=== PATIENT | female | born 1965 | race Caucasian/White ===

== ENCOUNTER 2022-01-18 07:54 | Outpatient (CLI) | payer OTHER, SELFPAY ==
--- NOTE | 2022-01-26 15:26 | WPDHOMESLEEP ---
Sleep Study - Home Unattended Date of Study: 01/18/22 Ordering Provider: Reece Jose DO Interpreting Provider: Leora Pickering MD Home Sleep Study Type: Apnea Link Air Height: 1.75 m Weight: 81.647 kg Body Mass Index: 26.6 Neck Circumference (inches): 15.5 [place]: 11 Reason for Sleep Study Hypersomnia Sleep History Emily Ellison is a 56 year old female with Complains of waking up during the night and having excessive daytime sleepiness. There is a family history of sleep apnea in her father. She occasionally awakens from sleep feeling short of breath. She occasionally awakens at night with heartburn, belching or coughing. She does not snore loudly enough that others complain about it. She frequently has trouble sleeping with a cold. She rarely wakes up gasping for breath at night. She occasionally has breathing problems at night observed by others. She frequently sweats excessively at night. She occasionally notices her heart pounding or beating irregularly at night. She occasionally falls asleep during the day. She frequently falls asleep involuntarily. She does not fall asleep while driving. She does not have loss of muscle tone with strong emotion. She does not have daytime difficulties due to excessive sleepiness. She does not feel paralyzed on waking or falling asleep. She occasionally has vivid dreamlike scenes upon awakening or falling asleep. She does not feel afraid to go to sleep. She occasionally has nightmares. She rarely remembers her dreams. She occasionally has racing thoughts. She rarely feels sad, depressed or anxious. She constantly has muscular tension. She rarely notices parts of her body jerking. She frequently kicks at night and has crawling and aching feelings in her legs. She frequently has leg pain during the night. She occasionally has morning jaw pain. She frequently is bothered by pain during the day. She occasionally is awakened by pain at night. She constantly wakes up feeling stiff in the morning. She frequently wakes up with sore achy muscles and pain in the neck and spine. She has fatigue. Normal bedtime is between 9:30 p.m. and 10:00 p.m., waking twice at night to urinate and get a drink. She wakes in the morning by 4:30 a.m.. On the weekends her schedule is similar, bedtime is 930-10 p.m. and she wakes at 5:00 a.m. she takes naps in the afternoon or evening. A short nap is not refreshing. Habits: Tobacco half pack per day. Caffeine 2 cups a day. No alcohol or recreational drugs. PMF Past Medical History Medical History Anxiety Asthma delivery delivered Cholecystectomy planned Hepatitis C Hyperlipemia Thyroid disease Surgical History Surgical History H/O: hysterectomy History of appendectomy History of bilateral tubal ligation Hx of tonsillectomy Family History Family History Father Hypertension Family history of diabetes mellitus in first degree relative Mother Family history of elevated blood lipids Social History Social History Smoking packs per day: 0.5 Smoking cigarettes per day: 10.0 Years smoked: 30 Smoking pack-years: 15.00 Smoking status: Current every day smoker Tobacco type: cigarettes Alcohol intake: never Medications Home Medications Medication Instructions Recorded Confirmed Type albuterol sulfate 90 mcg/actuation 90 mcg inhalation QID 09/17/19 10/21/21 History breath activated powder inhaler,sensor (Proair Digihaler) aspirin 81 mg tablet,delayed 81 mg PO DAILY 09/17/19 10/21/21 History release (Adult Aspirin Regimen) rosuvastatin 20 mg tablet 20 mg PO DAILY #30 tabs 09/19/19 10/21/21 Rx levothyroxine 150 mcg capsule 125 mcg PO DAILY 04/08/21 10/21/21 History Sleep
[2022-01-26 15:45] VITALS: BMI 26.6
== END 2022-01-20 12:24 | disposition home or self-care (01) ==
LOC: ANHCSM 07:55
PROVIDERS: PCP Internal Medicine; Visit Provider Internal Medicine Cardiovascular Disease
DX: G47.10 Hypersomnia, unspecified (principal); G25.81 Restless legs syndrome
CPT/HCPCS: 95806

== ENCOUNTER 2022-04-04 13:43 | Emergency (ER) | payer OTHER, SELFPAY ==
--- NOTE | 2022-04-04 13:48 | ECG_ITS ---
Measurements Intervals [place] Rate: 60 P: 65 DE: 144 QRS: 51 QRSD: 93 T: 34 QT: 441 QTc: 442 Interpretive Statements SINUS RHYTHM ATRIAL AND VENTRICULAR PREMATURE COMPLEXES BORDERLINE ST-T WAVE ABNORMALITY- ANTEROLAT/INF LEADS BORDERLINE ECG NO PREVIOUS ECG AVAILABLE FOR COMPARISON Electronically Signed On 04-04-2022 15:51:51 CDT by Reece Jose D.O.
[2022-04-04 14:00] VITALS: BP 108/60; PULSE 72; RESP 16; TEMP 35.8; O2SAT 99
--- NOTE | 2022-04-04 14:26 | ED.CHESTPAIN ---
HPI - Chest Pain General Chief Complaint: Chest Pain Stated Complaint: blood pressure and chest pain Time Seen by Provider: 04/04/22 14:09 Source: patient, family, RN notes reviewed and old records reviewed Mode of arrival: ambulatory Limitations: no limitations History of Present Illness HPI narrative: 56-year-old female accompanied by daughter presents to express care with complaints of episodes of chest pain starting this morning to the left side of the chest with some radiation down the shoulder to the left arm patient denies any acute dyspnea does admit to some nausea at times. Patient is supposed to be on cholesterol medicines and other meds and reports that she has not taken them regularly for the last year, she does smoke 1 pack cigarettes a day for many years relates history of father having aneurysm of his heart. MD complaint: chest pain Onset (ago): hour(s) (10 AM) Pain scale (0-10): 7 Treatment prior to arrival: none Related Data Allergies Allergy/AdvReac Type Severity Reaction Status Date / Time amoxicillin Allergy Unknown Unknown Verified 04/05/22 07:25 clavulanic acid Allergy Unknown HIVES Verified 04/05/22 07:25 codeine Allergy Unknown Unknown Verified 04/05/22 07:25 morphine Allergy Unknown Unknown Verified 04/05/22 07:25 Penicillins Allergy Unknown HIVES AND Verified 04/05/22 07:25 PERIPHERAL EDEMA tramadol Allergy Unknown Unknown Verified 04/05/22 07:25 PCN Allergy Severe ITCHING. Uncoded 04/05/22 07:25 BETALACTAMASEIN Allergy Unknown HIVES Uncoded 04/05/22 07:25 NKFA Allergy Unknown Unknown Uncoded 04/05/22 07:25 Review of Systems Review of Systems: CONSTITUTIONAL: Denies fever, chills, or sweats. EYES: Denies visual changes, redness, or discharge. ENT: Denies rhinorrhea, congestion, sore throat, or otalgia. CARDIOVASCULAR: Positive for intermittent chest pain today denies palpitations, or edema. RESPIRATORY: Denies cough or dyspnea. GASTROINTESTINAL: Denies abdominal pain,reports some nausea,no vomiting, or diarrhea. GENITOURINARY: Denies dysuria or hematuria. SKIN: Denies rash or itching. MUSCULOSKELETAL: Denies back pain, joint pain, or myalgia. NEUROLOGIC: Denies headache, numbness, or weakness. PSYCHIATRIC: Positive for anxiety or depression. All systems reviewed & are unremarkable except as noted in HPI and below PMFSH Past Medical History Medical History Anxiety Arthritis Asthma delivery delivered Cholecystectomy planned COPD (chronic obstructive pulmonary disease) Hepatitis C Hyperlipemia Low thyroid stimulating hormone (TSH) level Thyroid disease Surgical History Surgical History H/O: hysterectomy History of appendectomy History of bilateral tubal ligation Hx of tonsillectomy Previous back surgery Family History Family History Father Hypertension Family history of diabetes mellitus in first degree relative Mother Family history of elevated blood lipids Social History Social History Social History: The patient denies alcohol use, smokes a pack cigarettes 1p/day. occasional marijuana use Smoking packs per day: 0.5 Smoking cigarettes per day: 10.0 Years smoked: 30 Smoking pack-years: 15.00 Smoking status: Current every day smoker Tobacco type: cigarettes Alcohol intake: never Comments At time of signature, agree with nursing past medical, surgical, social and family history. There is no relevant family history pertinent to the presenting complaint Exam Narrative: GENERAL: Well-appearing, well-nourished, and in no acute distress. HEAD: Normocephalic, atraumatic. EYES: PERRLA and EOMI. ENT: Nares clear, no rhinorrhea or epistaxis. Mucous membranes moist. NECK: Supple. no lymphadenopathy CHEST: Clear to auscultation. No r
== END 2022-04-04 14:36 | disposition short-term general hospital (02) ==
PROVIDERS: Emergency Provider Registered Nurse; PCP Internal Medicine
DX: R07.9 Chest pain, unspecified (principal); F17.210 Nicotine dependence, cigarettes, uncomplicated; F12.90 Cannabis use, unspecified, uncomplicated; J45.909 Unspecified asthma, uncomplicated; E78.5 Hyperlipidemia, unspecified
CPT/HCPCS: 93005; 99213; G0463

== ENCOUNTER 2022-04-04 15:26 | Emergency (ER) | payer OTHER, SELFPAY ==
[2022-04-04] VITALS (11 sets, daily range): BP systolic 104–131; BP diastolic 53–78; PULSE 60–96; RESP 9–18; TEMP 36.2; O2SAT 79–100
--- NOTE | ~2022-04-04 | XR_ITS ---
EXAMINATION: XR chest 2V DATE: 04/04/2022 15:56 INDICATION: Chest pain TECHNIQUE: PA and lateral views of the chest are obtained. COMPARISON: None available FINDINGS: The lungs are free of acute opacities. No pleural effusion or pneumothorax. The cardiomedia stinal silhouette is normal. There is mild thoracic spondylosis. IMPRESSION: 1. No acute cardiopulmonary abnormality. Reviewed, dictated and finalized at location A.
--- NOTE | 2022-04-04 15:27 | ECG_ITS ---
Measurements Intervals [place] Rate: 64 P: 66 RI: 145 QRS: 51 QRSD: 97 T: 38 QT: 450 QTc: 465 Interpretive Statements SINUS RHYTHM WITH MARKED SINUS ARRHYTHMIA VENTRICULAR PREMATURE COMPLEX BORDERLINE ECG NO PREVIOUS ECG AVAILABLE FOR COMPARISON Electronically Signed On 04-04-2022 15:56:50 CDT by Reece Jose D.O.
[2022-04-04 15:48] LABS: Basophils Absolute Auto 0.1 K/mm3 (0.0-0.1); Basophils Percent Auto 0.7 % (0.2-1.2); Eosinophils Absolute Auto 0.2 K/mm3 (0-0.3); Eosinophils Percent Auto 2.7 % (0-4.4); Hematocrit 45.7 % (37.0-47.0); Hemoglobin 14.7 g/dL (12.0-15.0); Immature Granulocyte Absolute 0.04 K/mm3 (0.00-0.031); Immature Granulocyte Percent A 0.5 % (0-0.5); Lymphocytes Absolute Auto 3.04 K/mm3 (0.9-3.2); Lymphocytes Percent Auto 39.8 % (18.3-44.2); Mean Corpuscular HGB Conc 32.2 g/dl (32-36); Mean Corpuscular Hemoglobin 32.5 pg (26-34); Mean Corpuscular Volume 101.1 fl (80-100); Mean Platelet Volume 10.3 fl (7.4-10.4); Monocytes Absolute Auto 0.6 K/mm3 (0.1-0.6); Monocytes Percent Auto 7.2 % (2.6-8.5); Neutrophils Absolute Auto 3.8 K/mm3 (1.3-6.7); Neutrophils Percent Auto 49.1 % (45.5-73.1); Platelet Count Result 183 k/mm3 (150-375); Red Blood Count 4.52 M/mm3 (4.2-5.4); Red Cell Distribution Width 13.2 % (11.5-14.5); White Blood Count 7.6 K/mm3 (4.5-10.0)
[2022-04-04 16:00] LABS: Prothrombin Time 13.2 Seconds (11.1-14.7)
[2022-04-04 16:01] LABS: Alanine Aminotransferase 40 U/L (6-35); Albumin Level 4.5 g/dL (3.5-5.1); Alkaline Phosphatase 73 U/L (38-126); Anion Gap 10 mmol/L (8-16); Aspartate Amino Transferase 31 U/L (14-36); Bilirubin,Total 0.3 mg/dL (0.2-1.3); Blood Urea Nitrogen 12 mg/dL (7-17); Calcium 8.9 mg/dL (8.4-10.2); Carbon Dioxide 28 mmol/L (22-30); Chloride 101 mmol/L (98-107); Estimated CRCL calculation 65 ml/min; Estimated Glomerular Filt Rate > 60; Glucose 109 mg/dL (65-110); Lipase 167 U/L (23-300); Partial Thromboplastin Time 32.4 SECONDS (22.3-36.8); Potassium 3.9 mmol/L (3.4-5.0); Sodium 139 mmol/L (137-145)
[2022-04-04 16:11] LABS: Troponin I < 0.012 ng/mL (0.000-0.034)
--- NOTE | 2022-04-04 18:49 | ED.GENADULT ---
HPI - General Adult General Chief complaint: Chest Pain Stated complaint: chest pain Time Seen by Provider: 04/04/22 17:43 History of Present Illness HPI narrative: This is a 56-year-old female presenting ED with a chief complaint of chest pain. The patient said the chest pain started 8:00 a.m. while she was sitting drinking coffee. It is located on her left side and radiates to her left shoulder and collar bone. It is 7/10 in intensity, it comes and goes N/C explains as spasms. She is not currently experiencing chest pain. She has never felt pain like this before. There are no exacerbating or alleviating factors. Patient says is associated with vomiting. She denies vomiting, diaphoresis, or exertional component. She denies fever, chills, productive cough, history of blood clots or lower extremity edema. Patient states she has a history of emphysema but does not take any medication. 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 Related Data Allergies Allergy/AdvReac Type Severity Reaction Status Date / Time codeine AdvReac Nausea and Verified 04/04/22 19:26 Vomiting morphine AdvReac Vomiting Verified 04/04/22 19:25 Penicillins AdvReac Hives Verified 04/04/22 19:26 Review of Systems Review of Systems: CONSTITUTIONAL: Denies night sweats. EYES: No eye pain ENT: Denies rhinorrhea CARDIOVASCULAR: Denies palpitations RESPIRATORY: Denies hemoptysis GASTROINTESTINAL: Denies hematemesis GENITOURINARY: Denies hematuria. SKIN: Denies rash MUSCULOSKELETAL: Denies myalgia. NEUROLOGIC: Denies weakness. PSYCHIATRIC: Denies delusions [facility] Past Medical History Medical History (Updated 04/04/22 @ 20:02 by Connor Andino MD) Arthritis COPD (chronic obstructive pulmonary disease) Low thyroid stimulating hormone (TSH) level Surgical History Surgical History (Updated 04/04/22 @ 18:51 by Connor Andino MD) Previous back surgery Social History Social History (Updated 04/04/22 @ 18:52 by Connor Andino MD) Social History: The patient denies alcohol use, smokes a pack cigarettes 1p/day. occasional marijuana use Exam Narrative: APPEARANCE: No apparent distress. Head atraumatic. EYES: PERRLA/EOMI, NOSE: Normal no drainage NECK: Supple, Trachea midline RESPIRATORY: CTAB, No increased work of breathing. no wheezing, rhonchi or rales CARDIOVASCULAR: S1S2 appreciated no peripheral edema, ABDOMINAL: Soft, nontender, nondistended, MUSCULOSKELETAl: No obvious deformities, tenderness to palpation over the left pectoral muscles NEURO: Alert. Moving 4/4 extremities SKIN:: Warm, dry. Normal color PSYCHIATRIC: Normal affect Course Vital Signs Vital signs: Vital Signs Temperature 97.2 F L 04/04/22 15:28 Pulse Rate 96 04/04/22 15:28 Respiratory Rate 18 04/04/22 15:28 Pulse Oximetry 99 04/04/22 15:28 Temperature 97.2 F L 04/04/22 15:28 Pulse Rate 60 04/04/22 19:15 Respiratory Rate 12 04/04/22 19:15 Blood Pressure 104/55 L 04/04/22 19:15 Pulse Oximetry 97 04/04/22 19:15 Medical Decision Making MDM Narrative Medical decision making narrative: this is a 56-year-old female presenting to ED with chest pain. Differential includes ACS, pneumonia, COPD exacerbation musculoskeletal pain among others. Lab work, EKG and chest x-ray have been obtained. Patient was given Motrin and Tylenol as her pain is reproducible on palpitation. lab work was within normal limits. There have been 2- troponins. EKG interpretation: Rhythm [sinus], Rate 64, [place] -[normal], [place] -[normal], QRS [narrow], QTC [normal], T waves -[negative for concerning inversions], ST Segments - [Negative for concerning elevations] Final interpretations: Sinus arrhythmia with occasional PVCs My interpretation of the x-ray is no acute cardiopulmonary process. Patient's EKGs and labs are reviewed without significant high risk changes. Cardiac risk factors reviewed. Heart score
--- NOTE | 2022-04-04 19:14 | PC.NURSE ---
pt refusing IV she states it is not necessary.
[2022-04-04] MEDS: methocarbamoL 750 MG TABLET PO (19:20)
[2022-04-04 19:26] LABS: Troponin I < 0.012 ng/mL (0.000-0.034)
== END 2022-04-04 20:42 | disposition home or self-care (01) ==
PROVIDERS: Emergency Medicine; Emergency Provider Emergency Medicine; PCP Internal Medicine
DX: R07.9 Chest pain, unspecified (principal); J43.9 Emphysema, unspecified; M19.90 Unspecified osteoarthritis, unspecified site; F17.210 Nicotine dependence, cigarettes, uncomplicated; I49.3 Ventricular premature depolarization
CPT/HCPCS: 36415; 71046; 80053; 83690; 84484; 85025; 85610; 85730; 93005; 99213; 99284; A9270; G0463

== ENCOUNTER 2022-12-12 08:09 | Outpatient (CLI) | payer OTHER, SELFPAY ==
--- NOTE | ~2022-12-12 | NM_ITS ---
EXAMINATION: NM jeffrey stress w perfusion DATE: 12/12/2022 09:52 INDICATION: Other forms of dyspnea. TECHNIQUE: Rest images were obtained following intravenous administration of 10.5 mCi Tc99m tetrofosm in (Myoview). The patient was infused intravenously with Lexiscan (regadenoson). Then, 34.6 mCi Tc99m tetrofosmin (Myoview) was administered intravenously, and stress images were obtained. Data was dinora nstructed into short axis and horizontal and vertical long axis SPECT images. Gated SPECT images were also obtained. COMPARISON: CT abdomen and pelvis 01/29/2007 FINDINGS: There is increased activity below the diaphragm. There is a moderate-sized, mild, reversibl e perfusion defect involving apical to mid inferior wall and mid inferoseptal segment of left ventric le, consistent with ischemia. There is no segmental wall motion abnormality. Left ventricular eject ion fraction measures 61%. IMPRESSION: 1. Moderate-sized area of mild ischemia involving apical to mid inferior wall and mid inferoseptal se gment of left ventricle. Note that increased activity below the diaphragm decreases sensitivity and s pecificity in the inferior wall. 2. Normal left ventricular ejection fraction measuring 61%. Reviewed, dictated and finalized at location A. IMPRESSION: 1. Moderate-sized area of mild ischemia involving apical to mid inferior wall a nd mid inferoseptal segment of left ventricle. Note that increased activity bel ow the diaphragm decreases sensitivity and specificity in the inferior wall. 2. Normal left ventricular ejection fraction measuring 61%.
--- NOTE | 2022-12-12 08:12 | EST_ITS ---
Patient Info Name: Emily Ellison Age: 57 years : 1965 Gender: Female Ht: 70 in Wt: 180 lbs BSA: 2.02 m2 HR: 67 bpm BP: 117 / 68 mmHg Heart Rhythm: Sinus Rhythm Exam Date: 12/12/2022 8:58 AM Exam Location: [facility] Stress Patient Status: Outpatient Admit Date: 12/12/2022 Staff Ordering Physician: Reece Jose DO Attending Provider: Reece Jose DO Exercise Technologist: Autumn Villavicencio CT Exercise Physician: Reece Jose DO Exam Type: CA stress jeffrey w NM Study Info Indications R06.09 - Other forms of dyspnea A regadenoson stress test was performed. Summary 1. 1. Negative lexiscan stress test for ischemic ST changes by ECG criteria. 2. 2. Stable hemodynamics throughout the test. 3. 3. Nuclear scan to follow and will be reported separately. Please correlate with it. 4. 4. Patient informed of the above results. Protocol: Lexiscan Stress ECG Details Stage: REST Duration (min): 2 min : 29 sec HR (bpm): 64 SBP (mmHg): 117 DBP (mmHg): 68 Stage: REST Duration (min): 9 min : 10 sec HR (bpm): 72 SBP (mmHg): 117 DBP (mmHg): 68 Stage: STAGE 1 Duration (min): 0 min : 59 sec HR (bpm): 91 SBP (mmHg): 131 DBP (mmHg): 91 Stage: RECOVERY Duration (min): 1 min : 0 sec HR (bpm): 90 SBP (mmHg): 131 DBP (mmHg): 91 Stage: RECOVERY Duration (min): 2 min : 0 sec HR (bpm): 86 SBP (mmHg): 131 DBP (mmHg): 91 Stage: RECOVERY Duration (min): 3 min : 0 sec HR (bpm): 83 SBP (mmHg): 122 DBP (mmHg): 84 Rest HR: 72 bpm Peak HR: 94 bpm Rest Sys BP: 117 mmHg Peak Sys BP: 131 mmHg Max Pred HR: 162 bpm % Max Pred HR: 58 % Target HR: 138 bpm Max RPP: 12,314 bpm*mmHg Termination Reason: Completed protocol Cardiac Symptoms: Shortness of breath Total Time: 1 min : 0 sec Rest Gates BP: 68 mmHg Peak Gates BP: 91 mmHg Total Dose: 0.4 mg Resting ECG Sinus rhythm, frequent PAC's. Stress ECG No ST changes. Arrhythmias None. Report Signatures
== END 2022-12-12 08:10 | disposition home or self-care (01) ==
PROVIDERS: PCP Internal Medicine; Visit Provider Internal Medicine Cardiovascular Disease
DX: R06.09 Other forms of dyspnea (principal); E78.5 Hyperlipidemia, unspecified
CPT/HCPCS: 78452; 93017; A9502; J2785

== ENCOUNTER 2022-12-19 11:54 | Observation (INO) | payer OTHER, SELFPAY ==
[2022-12-19] VITALS (16 sets, daily range): BP systolic 97–144; BP diastolic 62–86; PULSE 51–75; RESP 14–22; TEMP 36–36.5; O2SAT 97–100; BMI 25.4
--- NOTE | ~2022-12-19 | XR_ITS ---
EXAMINATION: XR chest 2V DATE: 12/19/2022 12:27 INDICATION: Chest pain TECHNIQUE: Frontal and lateral views of the chest are obtained COMPARISON: 04/04/2022 FINDINGS: The lungs are free of acute opacities. No pleural effusion or pneumothorax. The cardiomedia stinal silhouette is normal. There is mild thoracic spondylosis. Surgical clips in the right upper qu adrant are likely from prior cholecystectomy. IMPRESSION: 1. No acute cardiopulmonary abnormality. Reviewed, dictated and finalized at location A.
--- NOTE | 2022-12-19 11:57 | ECG_ITS ---
Measurements Intervals [place] Rate: 65 P: 64 NE: 146 QRS: 54 QRSD: 90 T: 26 QT: 417 QTc: 435 Interpretive Statements SINUS RHYTHM WITH FREQUENT SUPRAVENTRICULAR PREMATURE COMPLEXES BORDERLINE ECG COMPARED TO ECG 04/04/2022 14:07:22 NO SIGNIFICANT CHANGES Electronically Signed On 12-19-2022 17:11:23 CDT by Nelson Tan M.D.
[2022-12-19] MEDS: ASPIRIN 81 MG CHEWABLE TABLET 324 MG PO (12:13)
[2022-12-19 12:19] LABS: Basophils Absolute Auto 0.1 K/mm3 (0.0-0.1); Eosinophils Absolute Auto 0.2 K/mm3 (0-0.3); Eosinophils Percent Auto 2.1 % (0-4.4); Hematocrit 46.7 % (37.0-47.0); Hemoglobin 15.5 g/dL (12.0-15.0); Immature Granulocyte Absolute 0.04 K/mm3 (0.00-0.031); Immature Granulocyte Percent A 0.5 % (0-0.5); Lymphocytes Absolute Auto 3.32 K/mm3 (0.9-3.2); Lymphocytes Percent Auto 40.5 % (18.3-44.2); Mean Corpuscular HGB Conc 33.2 g/dl (32-36); Mean Corpuscular Volume 99.4 fl (80-100); Mean Platelet Volume 10.5 fl (7.4-10.4); Monocytes Absolute Auto 0.7 K/mm3 (0.1-0.6); Monocytes Percent Auto 8.3 % (2.6-8.5); Neutrophils Absolute Auto 3.9 K/mm3 (1.3-6.7); Neutrophils Percent Auto 47.6 % (45.5-73.1); Platelet Count Result 198 k/mm3 (150-375); Red Cell Distribution Width 12.5 % (11.5-14.5); White Blood Count 8.2 K/mm3 (4.5-10.0)
[2022-12-19 12:23] LABS: Alanine Aminotransferase 34 U/L (6-35); Albumin Level 4.3 g/dL (3.5-5.1); Alkaline Phosphatase 84 U/L (38-126); Anion Gap 4 mmol/L (8-16); Aspartate Amino Transferase 28 U/L (14-36); Bilirubin,Total 0.4 mg/dL (0.2-1.3); Blood Urea Nitrogen 10 mg/dL (7-17); Calcium 8.6 mg/dL (8.4-10.2); Carbon Dioxide 30 mmol/L (22-30); Chloride 104 mmol/L (98-107); Estimated CRCL calculation 72 ml/min; Estimated Glomerular Filt Rate > 60; Glucose 95 mg/dL (65-110); Lipase 124 U/L (23-300); Potassium 4.4 mmol/L (3.4-5.0); Sodium 138 mmol/L (137-145)
[2022-12-19 12:27] LABS: Prothrombin Time 13.1 Seconds (11.1-14.7)
[2022-12-19 12:28] LABS: Partial Thromboplastin Time 31.7 SECONDS (22.3-36.8)
[2022-12-19 12:34] LABS: Troponin I < 0.012 ng/mL (0.000-0.034)
--- NOTE | 2022-12-19 13:25 | ED.CHESTPAIN ---
HPI - Chest Pain General Chief Complaint: Chest Pain Stated Complaint: cp radiation down arm and into back Time Seen by Provider: 12/19/22 12:35 Source: patient Mode of arrival: ambulatory Limitations: no limitations History of Present Illness HPI narrative: 57-year-old with a history of hypertension, COPD, anxiety here with complaints of midsternal chest pain radiating into her left arm for past 1 week. Patient states that she had outpatient stress test done at on 12/12/2022 which was abnormal. Since then she has been having chest pain with exertion. Patient denied any unusual shortness of breath, nausea or diaphoresis with the pain. She states that she called her carton making machine operator this morning was advised to come to the ER for possible stent. She presently has no pain Related Data Home Medications Medication Instructions Recorded Confirmed aspirin 81 mg tablet,delayed 81 mg PO DAILY 12/14/22 12/14/22 release Allergies Allergy/AdvReac Type Severity Reaction Status Date / Time amoxicillin Allergy Unknown Unknown Verified 12/14/22 14:03 clavulanic acid Allergy Unknown HIVES Verified 12/14/22 14:03 codeine Allergy Unknown Unknown Verified 12/14/22 14:03 morphine Allergy Unknown Unknown Verified 12/14/22 14:03 Penicillins Allergy Unknown HIVES AND Verified 12/14/22 14:03 PERIPHERAL EDEMA tramadol Allergy Unknown Unknown Verified 12/14/22 14:03 PCN Allergy Severe ITCHING. Uncoded 12/14/22 14:03 BETALACTAMASEIN Allergy Unknown HIVES Uncoded 12/14/22 14:03 NKFA Allergy Unknown Unknown Uncoded 12/14/22 14:03 Review of Systems Review of Systems: All systems reviewed & are unremarkable except as noted in HPI and below Constitutional: Constitutional: Reports no additional constitutional complaints Eyes: Eyes: Reports no additional eye complaints ENT: Reports system reviewed and no additional complaints, except as documented Cardiovascular: Cardiovascular: Reports as per HPI Respiratory: Respiratory: Reports no additional respiratory complaints Gastrointestinal: Gastrointestinal: Reports no additional gastrointestinal complaints Musculoskeletal: Musculoskeletal: Reports no additional musculoskeletal complaints Neurologic: Reports system reviewed and no additional complaints, except as documented [facility] Past Medical History Medical History Anxiety Arthritis Asthma delivery delivered Cholecystectomy planned COPD (chronic obstructive pulmonary disease) Hepatitis C Hyperlipemia Low thyroid stimulating hormone (TSH) level Thyroid disease Surgical History Surgical History H/O: hysterectomy History of appendectomy History of bilateral tubal ligation Hx of tonsillectomy Previous back surgery Family History Family History Father Hypertension Family history of diabetes mellitus in first degree relative Mother Family history of elevated blood lipids Social History Social History Social History: The patient denies alcohol use, smokes a pack cigarettes 1p/day. occasional marijuana use Smoking packs per day: 0.5 Smoking cigarettes per day: 10.0 Years smoked: 30 Smoking pack-years: 15.00 Smoking status: Current every day smoker Tobacco type: cigarettes Alcohol intake: never Exam Narrative: GENERAL: Well-appearing, well-nourished, and in no acute distress. HEAD: Normocephalic, atraumatic. EYES: PERRLA and EOMI. NECK: Supple. CHEST: Clear to auscultation. No respiratory distress. HEART: Regular rate and rhythm. No murmur heard. Normal peripheral pulses. ABDOMEN: Soft, nontender, nondistended, normal active bowel sounds. EXTREMITIES: Normal range of motion. No edema. SKIN: Warm, dry, no rash. NEURO: No focal deficits. Alert and oriented x3. PSYCH: Normal mo
[2022-12-19] MEDS: IPRATROPIUM BR 0.02% INH SOLN 0.5 MG/2.5 ML VIAL INHALATION ×2 (14:13→21:19)
[2022-12-19] MEDS: ALBUTEROL SULFATE NEB 2.5 MG/3 ML INH INHALATION (14:13)
[2022-12-19] MEDS: ONDANSETRON INJ 4 MG/2 ML VIAL IV PUSH (14:43)
[2022-12-19 16:23] LABS: Troponin I < 0.012 ng/mL (0.000-0.034)
--- NOTE | 2022-12-19 16:27 | PM.IMHP ---
H&P: HPI History of Present Illness Date/Time: 12/19/22 17:00 Chief Complaint: Left chest pain. Narrative: This is a 57-year-old female smoker with hyperlipidemia who presented to the emergency department from home for evaluation of left sided chest pain. The patient provides the following history. She had a stress test on 12/12/2022 for evaluation of shortness of breath which revealed a moderate-size area of mild ischemia involving the apical to mid inferior wall and mid inferoseptal segment of the left ventricle with a normal LVEF of 61%. She was referred to [facility] cardiology for consideration of cardiac catheterization but she has not yet had that done. She has since developed mid chest discomfort which initially occurred with exertion however is now occurring with rest. She has difficulties describing the pain but she does indicate that it seems to radiate through to the back into the left arm. Occasionally she has associated sweats, nausea, and mild shortness of breath. She denies syncope, near syncope, fever, chills, sweats, cough, orthopnea, paroxysmal nocturnal dyspnea, lower extremity edema, calf pain, and vomiting. Her vital signs were stable on arrival to the emergency department. CMP and CBC were really unremarkable though her hemoglobin was a bit elevated 15.5. Her initial troponin was negative. Chest x-ray showed sinus rhythm with ectopy and no acute ST segment elevations or depressions. Given her recent stress test results she is being admitted for close monitoring and Cardiology consultation. At the time my evaluation she is not having discomfort and she is resting comfortably. Review of Systems Review of Systems: Twelve systems were reviewed and are negative except for as per HPI. [facility] Past Medical History Medical History Anxiety Arthritis Asthma Chronic obstructive pulmonary disease Hepatitis C Hyperlipemia Hypothyroidism No longer on medication. Surgical History Surgical History History of appendectomy History of back surgery History of bilateral salpingo-oophorectomy History of bilateral tubal ligation History of hysterectomy History of laparoscopic cholecystectomy History of tonsillectomy Family History Family History Father Hypertension Family history of diabetes mellitus in first degree relative Mother Family history of elevated blood lipids Social History Social History Social History: Surrogate medical decision maker: Vitor Ellison, spouse. Code status: Full code. Smoking packs per day: 1 Smoking cigarettes per day: 20.0 Years smoked: 40 Smoking pack-years: 40.00 Smoking status: Current every day smoker Tobacco type: cigarettes Alcohol intake: never Substance use: current Substance use type: marijuana Lack of Transportation: No Lack of Food: Never True Current Housing: I Have Housing Concerned About Future Housing: No Difficulty Paying Gas/Electric Bills: No Difficulty Paying for Meds: No Currently Unemployed: No Education: High School Diploma/GED Difficulty w/ Childcare or Family Care: No Spiritual care concerns: No Meds Home Medications and Allergies Home Medications Medication Instructions Recorded Confirmed Type rosuvastatin 20 mg tablet 20 mg PO DAILY #90 tabs 04/22/22 12/19/22 Rx aspirin 81 mg tablet,delayed 81 mg PO DAILY 12/14/22 12/19/22 History release albuterol sulfate 90 mcg/actuation 2 inh inhalation Q6H 12/19/22 12/19/22 History aerosol inhaler Allergies Allergy/AdvReac Type Severity Reaction Status Date / Time amoxicillin Allergy Unknown Unknown Verified 12/14/22 14:03 clavulanic acid Allergy Unknown HIVES Verified 12/14/22 14:03 codeine Allergy Unknown Unknown Verified 0
[2022-12-19 20:18] LABS: Troponin I < 0.012 ng/mL (0.000-0.034)
[2022-12-19] MEDS: ALBUTEROL SULFATE (*SP) AEROSOL 1 PUFF 2 PUFF INHALATION (21:29)
[2022-12-20] VITALS (25 sets, daily range): BP systolic 93–119; BP diastolic 43–82; PULSE 48–95; RESP 13–21; TEMP 36.1–36.9; O2SAT 95–100
[2022-12-20] MEDS: IPRATROPIUM BR 0.02% INH SOLN 0.5 MG/2.5 ML VIAL INHALATION (02:57)
[2022-12-20] MEDS: ASPIRIN 81 MG ENTERIC TABLET PO (08:48)
[2022-12-20] MEDS: ALBUTEROL SULFATE (*SP) AEROSOL 1 PUFF 2 PUFF INHALATION ×3 (09:02→20:10)
--- NOTE | 2022-12-20 10:44 | PM.IMPN ---
Progress Note: A&P Assessment and Plan (1) Chest pain: Code(s): R07.9 - Chest pain, unspecified Status: Acute Assessment and Plan: Currently asymptomatic. Continue aspirin, morphine. Cardiology consulted (2) Chronic obstructive pulmonary disease: Code(s): J44.9 - Chronic obstructive pulmonary disease, unspecified Status: Acute Assessment and Plan: Stable. Continue ipratropium (3) Hyperlipemia: Code(s): E78.5 - Hyperlipidemia, unspecified Status: Acute Assessment and Plan: Continue statin (4) Tobacco abuse: Code(s): Z72.0 - Tobacco use Status: Acute Subjective Date/time seen: 12/20/22 10:44 Interval history: No chest pain at this time Review of Systems Review of Systems: Twelve systems were reviewed and are negative except for as per HPI. Exam Narrative: General: Well-developed, nontoxic-appearing female supine in bed. Weight: 80.6 kg. BMI: 25.5. HEENT: Normocephalic, atraumatic. PERRL, EOMI. Sclera anicteric. Oral mucosa moist. Neck: Supple. Respiratory: Lungs are clear to auscultation bilaterally. Cardiovascular: Regular rate and rhythm with S1-S2. Chest: No tenderness to palpation over the chest wall. Gastrointestinal: Abdomen is soft, nontender, and nondistended with positive bowel sounds. Skin: Warm and dry. No rash or lesions on limited exam. Extremities: No cyanosis, clubbing, or edema. Radial and pedal pulses intact. Wearing a brace on her right hand/wrist for her carpal tunnel symptoms. Neurological: Alert. Cranial nerves 2-12 are grossly intact. No gross focal deficits to casual conversation. Psychiatric: Pleasant and cooperative with appropriate mood and affect. Objective Data Vital Signs Vital Signs: Vital Signs - 24 hr 12/19/22 12:10 12/19/22 12:36 12/19/22 13:30 Temperature 97.5 F L Pulse Rate 67 68 65 Respiratory Rate 15 18 Blood Pressure 100/62 144/86 H Pulse Oximetry 100 98 Oxygen Delivery Room Air 12/19/22 13:52 12/19/22 14:14 12/19/22 14:15 Temperature Pulse Rate 69 72 Respiratory Rate 15 17 Blood Pressure 144/86 H Pulse Oximetry 100 99 Oxygen Delivery Room Air 12/19/22 14:24 12/19/22 15:04 12/19/22 15:18 Temperature 97.7 F Pulse Rate 60 64 70 Respiratory Rate 14 19 22 H Blood Pressure 100/66 126/63 Pulse Oximetry 98 97 Oxygen Delivery 12/19/22 17:00 12/19/22 16:00 12/19/22 18:00 Temperature 96.8 F L Pulse Rate 52 L 74 55 L Respiratory Rate 16 Blood Pressure 97/65 L Pulse Oximetry 100 Oxygen Delivery 12/19/22 16:00 12/19/22 20:00 12/19/22 20:00 Temperature 97.1 F L Pulse Rate 51 L 75 Respiratory Rate 16 Blood Pressure 99/64 L Pulse Oximetry 99 Oxygen Delivery Room Air 12/19/22 20:00 12/19/22 21:25 12/19/22 21:25 Temperature Pulse Rate 75 68 75 Respiratory Rate 16 18 Blood Pressure Pulse Oximetry 99 Oxygen Delivery Room Air 12/20/22 00:00 12/20/22 00:00 12/20/22 00:00 Temperature 97.6 F Pulse Rate 95 61 68 Respiratory Rate 20 20 Blood Pressure 93/61 L Pulse Oximetry 95 95 Oxygen Delivery Room Air 12/19/22 21:35 12/20/22 01:56 12/20/22 02:00 Temperature Pulse Rate 72 64 Respiratory Rate 18 Blood Pressure Pulse Oximetry 99 Oxygen Delivery Room Air 12/20/22 03:00 12/20/22 03:06 12/20/22 04:00 Temperature 97.8 F Pulse Rate 85 83 63 Respiratory Rate 16 16 18 Blood Pressure 107/55 L Pulse Oximetry 98 Oxygen Delivery 12/20/22 04:00 12/20/22 04:00 12/20/22 06:00 Temperature Pulse Rate 60 60 54 L Respiratory Rate 18 Blood Pressure Pulse Oximetry 98 Oxygen Delivery Room Air 12/20/22 08:00 12/20/22 09:03 12/20/22 08:00 Temperature 97.1 F L Pulse Rate 62 Respiratory Rate 14 Blood Pressure 111/43 L Pulse Oximetry 100 98 Oxygen Delivery Room Air Room Air 12/20/22 08:00 12/20/22 10:00 12/19/22 15:19 Temper
--- NOTE | 2022-12-20 11:58 | PM.CNCAR ---
Assessment and Plan Assessment and plan (1) Chest pain: Code(s): R07.9 - Chest pain, unspecified Status: Acute (2) Abnormal stress test: Code(s): R94.39 - Abnormal result of other cardiovascular function study Status: Acute (3) Tobacco abuse: Code(s): Z72.0 - Tobacco use Status: Acute Plan Given her chest pain in the setting of abnormal stress test, recommended cardiac cath, which was to be done as outpatient, however, as patient is now admitted, recommended inpatient cath as patient has been having progressive chest pain. Discussed indications of procedure, procedure details, risks vs benefits, alternative management options. Patient agrees to proceed. Will plan for cardiac cath this afternoon. Continue ASA and statin. Will load with Plavix 600mg x 1. Further recommendations/plan pending results of cardiac cath. History of Present Illness History of Present Illness Consult date/time: 12/20/22 11:58 Requesting physician: Nickolas Gautam MD Consult reason: chest pain Reason For Visit: Unstable Angina Narrative: We are consulted for chest pain. This is a 57-year-old female with hyperlipidemia, tobacco dependence, COPD who is a patient of Dr. Jose's. Patient saw Dr. Jose on 12/14 for chest pain, dyspnea on exertion. Lexiscan 12/12/2022 showed moderate-sized area of mild ischemia involving apical to mid inferior wall and mid inferoseptal segment of left ventricle. Normal LVEF 61% and no segmental wall motion abnormality seen. Dr. Jose recommended outpatient cardiac cath, but patient states her insurance has not approved it. Patient states her chest pain has been progressive, therefore, presented to the ER for further evaluation. EKGs show sinus rhythm without ischemic changes. Troponins are negative. Of note, prior to my initial evaluation of the patient, she stated to the nurses she wanted to leave [facility] as she is frustrated with the system. Review of Systems Review of Systems: All systems reviewed & are unremarkable except as noted in HPI and below (HPI) [facility] Past Medical History Medical History Anxiety Arthritis Asthma Chronic obstructive pulmonary disease Hepatitis C Hyperlipemia Hypothyroidism No longer on medication. Surgical History Surgical History History of appendectomy History of back surgery History of bilateral salpingo-oophorectomy History of bilateral tubal ligation History of hysterectomy History of laparoscopic cholecystectomy History of tonsillectomy Family History Family History Father Hypertension Family history of diabetes mellitus in first degree relative Mother Family history of elevated blood lipids Social History Social History Social History: Surrogate medical decision maker: Vitor Ellison, spouse. Code status: Full code. Smoking packs per day: 1 Smoking cigarettes per day: 20.0 Years smoked: 40 Smoking pack-years: 40.00 Smoking status: Current every day smoker Tobacco type: cigarettes Alcohol intake: never Substance use: current Substance use type: marijuana Lack of Transportation: No Lack of Food: Never True Current Housing: I Have Housing Concerned About Future Housing: No Difficulty Paying Gas/Electric Bills: No Difficulty Paying for Meds: No Currently Unemployed: No Education: High School Diploma/GED Difficulty w/ Childcare or Family Care: No Spiritual care concerns: No Meds Home Medications and Allergies Home Medications Medication Instructions Recorded Confirmed Type rosuvastatin 20 mg tablet 20 mg PO DAILY #90 tabs 04/22/22 12/19/22 Rx aspirin 81 mg tablet,delayed 81 mg PO DAILY 12/14/22 12/19/22 History release albuterol sulfate 90 mcg/actuation 2 inh inhalation Q6H
--- NOTE | 2022-12-20 12:13 | WPDMODSED ---
Moderate Sedation Note-Pt Data Patient Data Diagnosis: Chest pain, abnormal stress test Present Complaint: Chest pain, abnormal stress test Procedure to be performed/Plan: Coronary angiography, LHC, +/- PCI Allergies Allergy/AdvReac Type Severity Reaction Status Date / Time amoxicillin Allergy Unknown Unknown Verified 12/14/22 14:03 clavulanic acid Allergy Unknown HIVES Verified 12/14/22 14:03 codeine Allergy Unknown Unknown Verified 12/14/22 14:03 morphine Allergy Unknown Unknown Verified 12/14/22 14:03 Penicillins Allergy Unknown HIVES AND Verified 12/20/22 08:55 PERIPHERAL EDEMA, ITCHING tramadol Allergy Unknown Unknown Verified 12/14/22 14:03 acetaminophen [From Percocet] AdvReac Intermediate Hives Verified 12/19/22 15:17 oxycodone [From Percocet] AdvReac Intermediate Hives Verified 12/19/22 15:17 BETALACTAMASEIN Allergy Unknown HIVES Uncoded 12/14/22 14:03 NKFA Allergy Unknown Unknown Uncoded 12/14/22 14:03 Home Medications Medication Instructions Recorded Confirmed Type rosuvastatin 20 mg tablet 20 mg PO DAILY #90 tabs 04/22/22 12/19/22 Rx aspirin 81 mg tablet,delayed 81 mg PO DAILY 12/14/22 12/19/22 History release albuterol sulfate 90 mcg/actuation 2 inh inhalation Q6H 12/19/22 12/19/22 History aerosol inhaler Current Medications: Active Medications Albuterol (Albuterol Sulfate (*Sp) Aerosol 1 Puff) 2 puff INHALATION Q6HRT [facility] Last Admin: 12/20/22 09:02 Dose: 2 puff Aspirin (Aspirin 81 Mg Enteric Tablet) 81 mg PO DAILY [facility] Last Admin: 12/20/22 08:48 Dose: 81 mg Enoxaparin Sodium (Enoxaparin 40 Mg/0.4 Ml Syringe) 40 mg SUB-Q DAILY [facility] Ipratropium [place] (Ipratropium Br 0.02% Inh Soln 0.5 Mg/2.5 Ml Vial) 0.5 mg INHALATION Q6HRT [facility] Last Admin: 12/20/22 09:02 Dose: Not Given Morphine Sulfate (Morphine Sulfate (*Crx) 4 Mg/Ml Inj) 2 mg IV PUSH Q2H PRN PRN Reason: Pain Rated 7-10 Nitroglycerin (Nitroglycerin Sl 0.4 Mg Tablet) 0.4 mg SUBLINGUAL Q5MIN PRN PRN Reason: Chest Pain Ondansetron HCl (Ondansetron Inj 4 Mg/2 Ml Vial) 4 mg IV PUSH Q4H PRN PRN Reason: Nausea Last Admin: 12/19/22 14:43 Dose: 4 mg Rosuvastatin Calcium (Rosuvastatin 10 Mg Tablet) 20 mg PO HS [facility] Sedation/Anesthesia: No previous sedation/anesthesia problems (including family history). [facility] Past Medical History Medical History Anxiety Arthritis Asthma Chronic obstructive pulmonary disease Hepatitis C Hyperlipemia Hypothyroidism No longer on medication. Surgical History Surgical History History of appendectomy History of back surgery History of bilateral salpingo-oophorectomy History of bilateral tubal ligation History of hysterectomy History of laparoscopic cholecystectomy History of tonsillectomy Family History Family History Father Hypertension Family history of diabetes mellitus in first degree relative Mother Family history of elevated blood lipids Social History Social History Social History: Surrogate medical decision maker: Vitor Ellison, spouse. Code status: Full code. Smoking packs per day: 1 Smoking cigarettes per day: 20.0 Years smoked: 40 Smoking pack-years: 40.00 Smoking status: Current every day smoker Tobacco type: cigarettes Alcohol intake: never Substance use: current Substance use type: marijuana Lack of Transportation: No Lack of Food: Never True Current Housing: I Have Housing Concerned About Future Housing: No Difficulty Paying Gas/Electric Bills: No Difficulty Paying for Meds: No Currently Unemployed: No Education: High School Diploma/GED Difficulty w/ Childcare or Family Care: No Spiritual care concerns: No Mod Sed Physical Exam Physical Exam Pre Procedural Exam: Normal: Appearance,
[2022-12-20] MEDS: CLOPIDOGREL BISULFATE 300 MG TABLET 600 MG PO (12:44)
--- NOTE | 2022-12-20 14:25 | PC.NURSE ---
Pt to [facility] laborer via bed
[2022-12-20 14:41] LABS: Basophils Absolute Auto 0.1 K/mm3 (0.0-0.1); Basophils Percent Auto 0.9 % (0.2-1.2); Eosinophils Absolute Auto 0.1 K/mm3 (0-0.3); Eosinophils Percent Auto 1.7 % (0-4.4); Hematocrit 48.8 % (37.0-47.0); Immature Granulocyte Absolute 0.02 K/mm3 (0.00-0.031); Immature Granulocyte Percent A 0.3 % (0-0.5); Lymphocytes Absolute Auto 2.64 K/mm3 (0.9-3.2); Lymphocytes Percent Auto 34.4 % (18.3-44.2); Mean Corpuscular HGB Conc 32.8 g/dl (32-36); Mean Corpuscular Hemoglobin 32.8 pg (26-34); Mean Platelet Volume 10.3 fl (7.4-10.4); Monocytes Absolute Auto 0.7 K/mm3 (0.1-0.6); Monocytes Percent Auto 8.9 % (2.6-8.5); Neutrophils Absolute Auto 4.1 K/mm3 (1.3-6.7); Neutrophils Percent Auto 53.8 % (45.5-73.1); Platelet Count Result 200 k/mm3 (150-375); Red Blood Count 4.88 M/mm3 (4.2-5.4); Red Cell Distribution Width 12.4 % (11.5-14.5); White Blood Count 7.7 K/mm3 (4.5-10.0)
[2022-12-20 14:59] LABS: Anion Gap 8 mmol/L (8-16); Blood Urea Nitrogen 11 mg/dL (7-17); Carbon Dioxide 26 mmol/L (22-30); Chloride 103 mmol/L (98-107); Estimated CRCL calculation 72 ml/min; Estimated Glomerular Filt Rate > 60; Glucose 88 mg/dL (65-110); Magnesium 2.3 mg/dL (1.6-2.3); Potassium 4.3 mmol/L (3.4-5.0); Sodium 137 mmol/L (137-145)
--- NOTE | 2022-12-20 15:54 | WPDCARDPROC ---
Cardiac Cath Procedure Note Date of procedure:: 12/20/22 Performing physician:: CATHETERIZATION LABORATORY REPORT Procedure Date: 12/20/2022 Alignment Specialist: Abad Negro M.D., [facility]? Referring Physician: Abad Negro M.D. ? Anesthesia: Versed and Fentanyl were ordered and given in my presence at 14:58, procedure ended at 15:44. Supervision of nurse monitored moderate sedation with Versed and Fentanyl was provided for 46 minutes. Total of Versed 4mg and Fentanyl 50mcg were administered by the Pleater Hand RN Lisandra Garcia. Pre-op Diagnosis: Unstable angina Post-op Diagnosis: Significant obstructive 90% mid RCA stenosis s/p PCI with SAMANTHA x 1 Left ventricular end-diastolic pressure of 20mmHg Cardiac cath complicated by: After balloon predilatation of the RCA stenosis, patient went into polymorphic ventricular tachycardia. Defibrillated x 1, but then had recurrent ventricular tachycardia and required and additional 2 defibrillations. Patient then remained in sinus rhythm and remained hemodynamically stable thereafter. Stent was successfully deployed without any complications. No angiographic complications with PCI. Patient remained in sinus rhythm and hemodynamically stable at the end of the case. Patient was alert, awake, and conversive at end of case. Procedure(s): 1. Moderate sedation 2. Ultrasound-guided access of the right common femoral artery 3. Coronary angiography 4. Left heart cath 5. PCI of the mid RCA with SAMANTHA x 1, with pre and post dilatation Access Site: Right common femoral artery Brief History and Clinical Indications: Patient is a 57 year old female who is referred for [facility] for chest pain in the setting of abnormal stress test. All risks, benefits and alternatives to left heart catheterization with or without percutaneous coronary intervention was discussed at length with the patient. Risk of complications including but not limited to bleeding, infection, arrhythmia, stroke, worsening kidney function, blood loss, groin hematoma, limb loss, emergency coronary artery bypass grafting, and even were discussed with the patient and all questions were answered. The patient understood and wished to proceed. Time out called, patient name, date of , medical record number, allergies, procedure performed, identify Alignment Specialist, patient and staff member concurred with accurate data, procedure carried on. Findings: LEFT HEART CATHETERIZATION FINDINGS: 1. Left main: The left main coronary artery is widely patent without any significant obstructive disease. 2. Left anterior descending: The proximal and mid LAD has luminal irregularities. The distal LAD has mild diffuse disease. Diagonal branches without any obstructive disease. 3. Left circumflex: The left circumflex artery and the main marginal branches have mild luminal irregularities without any significant obstructive angiographic disease. 4. Right coronary artery: The RCA is the dominant vessel. Luminal irregularities in the proximal portion. The mid RCA has a focal 90% stenosis. Distal RCA has luminal irregularities. 5. Left ventricle: A. End-diastolic pressure 20mmHg. B. LV gram deferred. C. No significant gradient across aortic valve on catheter pullback. Description of Procedure: Informed consent signed and placed in the chart. Patient transferred to lab instructor room. Prepped and draped in usual sterile fashion. 2% lidocaine in right groin area. Micropuncture needle used to access right common femoral artery with Seldinger technique under fluoroscopic and ultrasound guidance. J wire advanced, micropuncture cannula placed. Right iliofemoral angiogram performed, access confirmed and micropuncture cannula exchanged for 5-FR sheath. 5F FL 4 diagnostic catheter engaged Left Main Coronary Artery. 5F FR 4 diagnostic catheter engaged Right Coronary Artery. Multiple orthogonal angiogram obtained and reviewed Decision made to proceed with PCI of the RCA s
--- NOTE | 2022-12-20 16:55 | PC.NURSE ---
Pt to be transferred to ICU 3. Report given to SYLVIA James @ [phone].
--- NOTE | 2022-12-20 17:08 | PC.NURSE ---
This patient, Emily Ellison, was received from [facility] on 12/20/22 at 1708. Patient/family oriented to unit policies and routines
[2022-12-20] MEDS: SODIUM CHLORIDE 0.9% IV 1,000 ML 125 ML IV CONT (17:17)
[2022-12-20] MEDS: MORPHINE SULFATE (*CRX) 2 MG/ML INJ IV PUSH ×2 (18:39→22:56)
[2022-12-20] MEDS: ROSUVASTATIN 10 MG TABLET 20 MG PO (21:15)
[2022-12-20] MEDS: ONDANSETRON INJ 4 MG/2 ML VIAL IV PUSH (22:56)
[2022-12-21] VITALS: BP 104/66; PULSE 51; PULSE 53; RESP 18; TEMP 36.6; O2SAT 94; O2SAT 95
--- NOTE | 2022-12-21 16:50 | PC.NURSE ---
Paper documentation exists on this patient due to [employer] downtime on 12/21/22 from 00:30 to 16:30.
--- NOTE | 2022-12-21 19:03 | PC.NURSE ---
Patient discharged at 12:36
--- NOTE | 2023-01-05 16:24 | PM.DS ---
DS: Admitting Diagnosis Discharge Date 12/21/22 Admitting Diagnosis Chest pain DS: Discharge Diagnosis Discharge Diagnosis (1) Chest pain: Code(s): R07.9 - Chest pain, unspecified Status: Acute Assessment and Plan: Currently asymptomatic. Continue aspirin, morphine. Cardiology consulted (2) Chronic obstructive pulmonary disease: Code(s): J44.9 - Chronic obstructive pulmonary disease, unspecified Status: Acute Assessment and Plan: Stable. Continue ipratropium (3) Hyperlipemia: Code(s): E78.5 - Hyperlipidemia, unspecified Status: Acute Assessment and Plan: Continue statin (4) Tobacco abuse: Code(s): Z72.0 - Tobacco use Status: Acute DS: Summary Hospital Course Hospital Course: Patient was admitted for unstable angina. Cardiology was consulted and evaluated the patient. Results of catheterization or below. Post-op Diagnosis: Significant obstructive 90% mid RCA stenosis s/p PCI with SAMANTHA x 1 Left ventricular end-diastolic pressure of 20mmHg Cardiac cath complicated by: After balloon predilatation of the RCA stenosis, patient went into polymorphic ventricular tachycardia. Defibrillated x 1, but then had recurrent ventricular tachycardia and required and additional 2 defibrillations. Patient then remained in sinus rhythm and remained hemodynamically stable thereafter. Stent was successfully deployed without any complications. No angiographic complications with PCI. Patient remained in sinus rhythm and hemodynamically stable at the end of the case. Patient was alert, awake, and conversive at end of case. Procedure(s): 1. Moderate sedation 2. Ultrasound-guided access of the right common femoral artery 3. Coronary angiography 4. Left heart cath 5. PCI of the mid RCA with SAMANTHA x 1, with pre and post dilatation After procedure, patient was transferred to ICU and monitored. Patient stabilized and vitals were stable and she was ultimately discharged. Time Spent with Patient Time attestation: Total time spent providing and/or coordinating discharge services: Exam Narrative: General: Well-developed, nontoxic-appearing female supine in bed. Weight: 80.6 kg. BMI: 25.5. HEENT: Normocephalic, atraumatic. PERRL, EOMI. Sclera anicteric. Oral mucosa moist. Neck: Supple. Respiratory: Lungs are clear to auscultation bilaterally. Cardiovascular: Regular rate and rhythm with S1-S2. Chest: No tenderness to palpation over the chest wall. Gastrointestinal: Abdomen is soft, nontender, and nondistended with positive bowel sounds. Skin: Warm and dry. No rash or lesions on limited exam. Extremities: No cyanosis, clubbing, or edema. Radial and pedal pulses intact. Wearing a brace on her right hand/wrist for her carpal tunnel symptoms. Neurological: Alert. Cranial nerves 2-12 are grossly intact. No gross focal deficits to casual conversation. Psychiatric: Pleasant and cooperative with appropriate mood and affect. Discharge Plan Discharge Consulting providers: Josephine Palomares; Abad Negro; Kingston Roberts; Nelson Tan Discharging Clinician: Miguel Angel Quinones Patient Disposition: Home, Self-Care Activity: may shower, no straining, no driving and other - see discharge instructions Diet: heart healthy Wound Care Instructions: other - see discharge instructions Discharge Instructions: No driving for 24 hours No lifting over 10lbs for 72 hours Wound Care: Remove dressing after 24 hours Gently clean and dry area Cover with a clean bandage Change bandage daily until healed Patient Instructions: Antibiotic Form, Chest Pain (DC), How to Stop Smoking (DC) Stand Alone Forms: General Discharge Information Follow-up/Referrals: Primary Care Physician [Other] - 2 Weeks Reece Jose DO [Primary Care Provider] - 2 Weeks (December 28 at 8:30 am) Abad Negro MD [Physician] - 2 Weeks Discharge Medications: New clopidogrel 75 mg Tablet
== END 2022-12-21 19:02 | disposition home or self-care (01) ==
LOC: ANHED 13:41 → ANHIMU 15:52 → ANHICU 12-21 16:39 → ANHIMU 12-23 09:39
PROVIDERS: Emergency Medicine; Internal Medicine; Physician Assistant; Admitting Provider Hospitalist; Emergency Provider Family Medicine; PCP Internal Medicine Cardiovascular Disease; Visit Provider Chiropractor
PROC: 4A023N7 Measurement of Cardiac Sampling and Pressure, Left Heart, Percutaneous Approach (ICD-10-PCS; CPT 93452; principal; 2022-12-20 14:00)
DX: I25.110 Atherosclerotic heart disease of native coronary artery with unstable angina pectoris (principal); R07.9 Chest pain, unspecified; R94.39 Abnormal result of other cardiovascular function study; J44.9 Chronic obstructive pulmonary disease, unspecified; E78.5 Hyperlipidemia, unspecified; I49.1 Atrial premature depolarization; F41.9 Anxiety disorder, unspecified; E03.9 Hypothyroidism, unspecified; Z86.19 Personal history of other infectious and parasitic diseases; F17.210 Nicotine dependence, cigarettes, uncomplicated; F12.90 Cannabis use, unspecified, uncomplicated; Z79.82 Long term (current) use of aspirin; Z79.52 Long term (current) use of systemic steroids; Z79.899 Other long term (current) drug therapy
CPT/HCPCS: 36415; 71046; 80048; 80053; 83690; 83735; 84443; 84484; 85025; 85610; 85730; 93005; 93458; 94640; 96374; 99285; A9270; C1725; C1760; C1769; C1874; C1887; C1894; C9600; G0269; G0378; G0379; J0282; J0461; J0583; J1644; J2250; J2270; J2405; J3010; J7030; J7040

== ENCOUNTER 2023-01-05 12:38 | Emergency (ER) | payer OTHER, SELFPAY ==
[2023-01-05 12:51] VITALS: BP 110/49; PULSE 74; RESP 16; TEMP 36.8; O2SAT 99
--- NOTE | 2023-01-05 13:06 | ED.GENADULT ---
HPI - General Adult General Chief complaint: Back Pain/Injury Stated complaint: Low Back Pain Source: patient and RN notes reviewed Limitations: no limitations History of Present Illness HPI narrative: Patient is a 57-year-old female who presents to the [facility] with complaints of right flank plain for the past couple days. Patient states the pain continues to get worse. It is constant and sharp. It radiates into the right lower quadrant of her abdomen. She reports urinary frequency, urgency, and dysuria. Denies known hematuria. Denies recent fevers or chills. She denies history of kidney stones. She reports recent angioplasty with 1 stent being placed due to 90% blockage. She denies chest pain or shortness of breath at this time. Related Data Home Medications Medication Instructions Recorded Confirmed albuterol sulfate 90 mcg/actuation 2 inh inhalation Q6H 12/19/22 12/28/22 aerosol inhaler Allergies Allergy/AdvReac Type Severity Reaction Status Date / Time amoxicillin Allergy Unknown Unknown Verified 12/28/22 08:34 clavulanic acid Allergy Unknown HIVES Verified 12/28/22 08:34 codeine Allergy Unknown Unknown Verified 12/28/22 08:34 morphine Allergy Unknown Unknown Verified 12/28/22 08:34 Penicillins Allergy Unknown HIVES AND Verified 12/28/22 08:34 PERIPHERAL EDEMA, ITCHING tramadol Allergy Unknown Unknown Verified 12/28/22 08:34 acetaminophen [From Percocet] AdvReac Intermediate Hives Verified 12/28/22 08:34 oxycodone [From Percocet] AdvReac Intermediate Hives Verified 12/28/22 08:34 BETALACTAMASEIN Allergy Unknown HIVES Uncoded 12/28/22 08:34 NKFA Allergy Unknown Unknown Uncoded 12/28/22 08:34 Review of Systems Review of Systems: CONSTITUTIONAL: Denies fever, chills, or sweats. EYES: Denies visual changes, redness, or discharge. ENT: Denies otalgia and sore throat. CARDIOVASCULAR: Denies chest pain, palpitations, or edema. RESPIRATORY: Denies cough or dyspnea. GASTROINTESTINAL: Denies abdominal pain, nausea, vomiting, or diarrhea. GENITOURINARY: Reports right flank pain. Reports dysuria and urinary frequency. Denies hematuria. SKIN: Denies rash or itching. MUSCULOSKELETAL: Denies joint pain or myalgia. NEUROLOGIC: Denies headache, numbness, or weakness. Pertinent positives per HPI. [facility] Past Medical History Medical History Anxiety Arthritis Asthma Chronic obstructive pulmonary disease Hepatitis C Hyperlipemia Hypothyroidism No longer on medication. Surgical History Surgical History History of appendectomy History of back surgery History of bilateral salpingo-oophorectomy History of bilateral tubal ligation History of hysterectomy History of laparoscopic cholecystectomy History of tonsillectomy Family History Family History Father Hypertension Family history of diabetes mellitus in first degree relative Mother Family history of elevated blood lipids Social History Social History Social History: Surrogate medical decision maker: Vitor Rodrigesvievkconrad, spouse. Code status: Full code. Smoking packs per day: 1 Smoking cigarettes per day: 20.0 Years smoked: 40 Smoking pack-years: 40.00 Smoking status: Current every day smoker Tobacco type: cigarettes Alcohol intake: never Substance use: current Substance use type: marijuana Lack of Transportation: No Lack of Food: Never True Current Housing: I Have Housing Concerned About Future Housing: No Difficulty Paying Gas/Electric Bills: No Difficulty Paying for Meds: No Currently Unemployed: No Education: High School Diploma/GED Difficulty w/ Childcare or Family Care: No Spiritual care concerns: No Comments At the time of my signature, I reviewed
== END 2023-01-05 13:17 | disposition short-term general hospital (02) ==
PROVIDERS: Emergency Provider Nurse Practitioner; PCP Internal Medicine
DX: R10.9 Unspecified abdominal pain (principal); F17.210 Nicotine dependence, cigarettes, uncomplicated; F12.90 Cannabis use, unspecified, uncomplicated; J44.9 Chronic obstructive pulmonary disease, unspecified; M19.90 Unspecified osteoarthritis, unspecified site; E78.5 Hyperlipidemia, unspecified; Z86.19 Personal history of other infectious and parasitic diseases
CPT/HCPCS: 81003; 99212; G0463

== ENCOUNTER 2023-01-31 14:28 | Outpatient (CLI) | payer OTHER, SELFPAY ==
--- NOTE | 2023-01-31 14:31 | ECHO_ITS ---
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 Summary 1. Complete two-dimensional, color flow and Doppler transthoracic echocardiogram is performed. 2. Left ventricular chamber dimension is normal. 3. Left ventricular systolic function is normal, estimated at 55-60%. 4. The left ventricular diastolic function is normal. 5. No pulmonary hypertension, estimated pulmonary arterial systolic pressure is 11 mmHg. Left Ventricle Tissue doppler E/e' is not performed. Left ventricular chamber dimension is normal. Left ventricular systolic function is normal, estimated at 55-60%. The left ventricular diastolic function is normal. Right Ventricle Right ventricular systolic function is normal and with normal TAPSE 2.9 cm. Right ventricular chamber dimension is normal. Left Atria Left atrial chamber dimension is normal. Right Atria Right atrial chamber dimension is normal. Aortic Valve The aortic valve is trileaflet. There is no aortic valve stenosis. There is no aortic valve regurgitation. Pulmonic Valve There is no pulmonic regurgitation. Mitral Valve There is no mitral valve stenosis. There is no mitral valve regurgitation. Tricuspid Valve There is no tricuspid valve regurgitation. No pulmonary hypertension, estimated pulmonary arterial systolic pressure is 11 mmHg. Pericardium/Pleural There is no pericardial effusion. Inferior Vena Cava Normal inferior vena cava with >50% collapse upon inspiration consistent with normal right atrial pressure, 5 mmHg. Aorta The aortic root size at the sinus of Valsalva is normal. Left Ventricular Outflow Tract Name Value Normal LVOT 2D LVOT Diameter 1.9 cm LVOT Doppler LVOT Peak Gradient 7 mmHg LVOT Mean Gradient 4 mmHg LVOT VTI 36 cm LVOT VTI/AV VTI Ratio 0.8 LVOT Stroke Volume 102 ml LVOT CO 7.5 l/min LVOT CI 3.7 l/min/m2 Pulmonic Valve Name Value Normal RVOT Doppler RVOT Peak Gradient 2 mmHg PV Doppler PV Peak Gradient 3 mmHg Mitral Valve
== END 2023-01-31 14:29 | disposition home or self-care (01) ==
PROVIDERS: PCP Internal Medicine; Visit Provider Internal Medicine Cardiovascular Disease
DX: I25.10 Atherosclerotic heart disease of native coronary artery without angina pectoris (principal)
CPT/HCPCS: 93306